=== PATIENT | male | born 1985 | race Caucasian/White ===

== ENCOUNTER 2020-07-27 17:18 | Emergency (ER) | payer SELFPAY ==
[2020-07-27] MEDS ORDERED: NA CHLORIDE 0.9% 2,000 ML ONE (19:02)
[2020-07-27] MEDS ORDERED: ONDANSETRON 4 MG/2 ML VIAL ONE (19:02)
[2020-07-27] MEDS ORDERED: MORPHINE 4 MG/ML SYR ONE (19:02)
[2020-07-27 19:11] LABS: Absolute Lymphocytes (CBC) 0.9 K/uL (0.7-4.9); Basophils % 0.7 % (0-1.3); Hematocrit 38.4 % (39.6-49.0); Lymphocytes % 18.9 % (15.3-44.8); MPV 8.6 fL (7.6-11.3); RBC Red Blood Cell Count 4.31 M/uL (4.33-5.43)
[2020-07-27 19:21] LABS: ALT/SGPT 155 U/L (12-78); AST/SGOT 107 U/L (15-37); Albumin 3.2 g/dL (3.4-5.0); Alkaline Phosphatase 115 U/L (45-117); BUN Blood Urea Nitrogen 14 mg/dL (7-18); Bicarbonate 23 mmol/L (21-32); Bilirubin Direct 0.1 mg/dL (0-0.2); Bilirubin Total 0.4 mg/dL (0.2-1.0); Glucose Level 82 mg/dL (74-106); Lipase 149 U/L (73-393); Potassium 3.7 mmol/L (3.5-5.1); Protein, Total 7.4 g/dL (6.4-8.2); Sodium Level 136 mmol/L (136-145)
--- NOTE | 2020-07-27 19:29 | RAD REPORT ---
EXAM DESCRIPTION: US - Lower Extremity Artery Uni Ltd - 07/27/2020 7:07 pm CLINICAL HISTORY: pain, swelling Right lower extremity pain COMPARISON: No comparisons FINDINGS: Doppler interrogation of the right lower extremity arterial system was performed. Normal t riphasic waveforms are present. No stenosis or occlusion is evident. IMPRESSION: No flow abnormality detected.
[2020-07-27 19:34] LABS: Blood Morphology Comment NOT SEEN (NOT SEEN); Platelet Estimate DECR; White Blood Cell Scan OK (OK)
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
[2020-07-27] MEDS ORDERED: FENTANYL CITR 100 MCG/2 ML ONE (20:37)
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
[2020-07-27 21:41] VITALS: BP 128/71
[2020-07-27 21:42] VITALS: TEMP 99.3
[2020-07-27 21:43] VITALS: O2SAT 99
== END 2020-07-27 21:32 | disposition left against medical advice (07) ==
LOC: ER 17:18
DX: U07.1 COVID-19 (principal); S30.22XA Contusion of scrotum and testes, initial encounter; V23.4XXA Motorcycle driver injured in collision with car, pick-up truck or van in traffic accident, initial encounter; F17.210 Nicotine dependence, cigarettes, uncomplicated
CPT/HCPCS: 36415; 70450; 71260; 72125; 74177; 76870; 80048; 80076; 83605; 83690; 85025; 87040; 87205; 93926; 96361; 96374; 96375; 99284; J2405; J3010; J7030; Q9967; U0003